=== PATIENT | female | born 1965 ===

== ENCOUNTER 2019-01-26 23:53 | Emergency (ER) | payer BC ==
[2019-01-27] MEDS ORDERED: Ketorolac Tromethamine 60 MG/2 ML VIAL ONE (00:26)
[2019-01-27] MEDS ORDERED: methylPREDNISolone Sod Succ/PF 125 MG/2 ML VIAL ONE (00:26)
== END 2019-01-27 01:10 | disposition home or self-care (01) ==
LOC: SCSER 23:53
DX: M79.10 Myalgia, unspecified site (principal)
CPT/HCPCS: 96372; 99282; J1885; J2930